=== PATIENT | female | born 1965 | race Caucasian/White ===

== ENCOUNTER 2021-12-04 08:41 | Outpatient (REF) | payer OTHER, SELFPAY ==
[2021-12-04 11:56] LABS: Hematocrit 41.9 % (37.0-47.0); Hemoglobin 13.6 g/dl (12.0-16.0); Mean Corpuscular HGB Conc 32.5 g/dl (31.0-35.0); Mean Corpuscular Hemoglobin 28.9 pg (27.0-33.0); Mean Corpuscular Volume 89.1 fL (80.0-98.0); Mean Platelet Volume 9.1 fL (9.4-12.3); Platelet Count 431 X10*3/uL (160-400); White Blood Count 7.3 X10*3/uL (4.8-10.8)
[2021-12-04 12:44] LABS: Alanine Aminotransferase 12 U/L (0-31); Albumin Level 4.3 g/dL (3.5-5.0); Alkaline Phosphatase 79 U/L (39-117); Anion Gap 16 (12-20); Aspartate Amino Transferase 14 U/L (5-31); Bilirubin Total 0.3 mg/dL (0.0-1.0); Blood Urea Nitrogen 14 mg/dL (9-16); Calcium 9.6 mg/dL (8.4-10.2); Carbon Dioxide 29 mmol/L (22-29); Chloride 101 mmol/L (96-108); Cholesterol 216 mg/dL; Estimated Glomerular Filt Rate > 60; Glucose Fasting 96 mg/dL (60-99); HDL Cholesterol 50 mg/dL; LDL Cholesterol Calculated 132 mg/dl; Sodium 142 mmol/L (135-145); Total Protein 7.3 g/dL (6.5-8.0); Triglycerides 172 mg/dL
[2021-12-04 12:48] LABS: TSH reflex Free T4 1.64 uIU/mL (0.32-4.0)
== END 2021-12-04 08:42 | disposition home or self-care (01) ==
LOC: HO.WFDLDS 08:41
PROVIDERS: Visit Provider Hospitalist
DX: Z00.00 Encounter for general adult medical examination without abnormal findings (principal)
CPT/HCPCS: 36415; 80053; 80061; 84443; 85027

== ENCOUNTER 2023-10-26 11:52 | Outpatient (AMB) | payer OTHER, SELFPAY ==
--- NOTE | 2023-10-26 12:02 | MHC.PC.OV ---
Vital Signs 10/26/23 12:06 Height 5 ft 6 in Weight 285 lb 6 oz BMI 46.1 BP 144/78 H Blood Pressure Location Lt brachial Position Sitting Respiration 16 Pulse 130 H Pulse Source Pulse Oximeter Pulse Oximetry (%) 97 Oxygen Delivery Method Room Air Intake Visit Reasons: KRISH from [facility] Intake Note: patient is here for blood pressure medicine Allergies No Known Allergies Allergy (Verified 10/26/23 12:31) Medication List - Last Reconciled 10/26/23 by Lima Álvarez [facility] amlodipine 5 mg PO DAILY hydrochlorothiazide 25 mg PO DAILY lisinopril 40 mg PO DAILY Tobacco use date assessed: 10/26/23 Dental Screening Dental Screen Date: 10/26/23 Did you have a dental visit in the last 12 months?: Yes Did you have a dental problem in the last 6 months where you did not have access to dental care?: No Was dental information given to patient?: Patient has dentist HPI HPI Comments History of Present Illness Details 58-year-old female with obstructive sleep apnea with CPAP , hypertension, depression, anxiety, erosive esophagitis, diverticulosis, Hyperlipidemia, heart murmur, obesity, left breast mass, chronic back pain, tachycardia, iron-deficiency anemia s/p lap alice Health Maintenance: Colon 10/15/20 + polyp, repeat 2025 ([facility]) Mammo 12/19/22 wnl min Pap 01/04/18 wnl DEXA Tdap 2017 Specialists: Cardiology GI Sleep medicine Here today to establish care. She has hypertension which is managed on hydrochlorothiazide, amlodipine and lisinopril. She reports taking as directed however forgets at times. She has a medical history of tachycardia of what she was evaluated by Cardiology in the past. Her heart rate is elevated today. She reports that she monitors her pulse at home and it is usually in the 70s to 90s. She currently denies any chest pain or shortness of breath. Furthermore she denies any neuro complaints. She reports that her pulse is elevated today due to anxiety. Her anxiety is currently untreated. Her symptoms include disrupted sleep. She denies self medication with substances. Does admit to some overeating. Has been reports that she has some tremors of her head when she is anxious. The patient reports that this does not bother her. She was referred to counseling in the past however the co-pay was 40 dollars per visit and she could not afford this. She currently is not working. She admits passive suicidality without a plan. She has never been on medications as she wanted to treat her anxiety 1st with counseling. She is open to medication however does not want to be put on something that will cause her to gain weight. She reports that she has had some situational stressors to include [place] She also reports pain in bilateral legs. Reports some time ago she dropped something on her left foot, she was using her right leg to bear weight to compensate and this caused pain and burden of the right leg. Walking 1 time she felt a pop in the right knee. She did not seek any medical care or treatment for this. Her legs continue to bother her today. It was also thought in the past that her tachycardia was related to untreated sleep apnea. She reports tolerance compliance with her CPAP. Reports no big improvement with her tachycardia since using. Exam: Awake alert, NAD Tachycardic, regular rhythm LS CTAB No edema BLE, feet cool, decreased PP bilat, skin intact Tearful when talking about anxiety, yet appropriate and pleasant Plan: The plan today will be to check some screening labs to rule out any cause for her tachycardia and anxiety. If the labs are negative or reassuring, discuss starting her on a beta-monalisa to help her tachycardia along with her generalized anxiety disorder. Could also entertain BuSpar if needed. Refer to the nurse navigator to help her establish care with a counselor. Also recommended checking in with her spouse's employer assistance program to see if services would be available to her. I would like to see her back in 2 weeks for close interim follow up to review her labs and treatment plan. Sooner as needed. Labs from today show normal CBC, normal electrolytes, normal renal function, hemoglobin A1c 5.9%, normal magnesium and phosphorus, normal iron profile, normal LFTs, normal B12, folate and TSH, normal urine microalbumin creatinine ratio, vitamin-D and direct LDL pending This note is constructed using voice recognition software. While every effort has been made to ensure accuracy in copper plate lithographer, still errors may have been included Sometimes, these errors may affect the content or meaning of the given sentence . Total time spent caring for the patient today was 42 minutes. This includes time spent before the visit reviewing the chart, time spent during the visit, and time spent after the visit on documentation [facility] Medical History (Updated 10/26/23 @ 16:19 by Lima Álvarez, [facility]) Left breast mass Anxiety associated with depression Sleep apnea Tachycardia Hypertension Family History Father Heart disease Mother Hypertension Other Mental health disorder Substance use disorder Social History Housing: House Patient Tobacco Use Status: Never used Tobacco service: No Current occupational status: unemployed Cognitive needs: No Hearing needs: No Vision needs: Yes (wear glasses) Questionnaire PHQ-9 Over the last 2 weeks, how often have you been bothered by any of the following problems? 1. Little interest or pleasure in doing things: more than half the days 2. Feeling down, depressed, or hopeless: more than half the days 3. Trouble falling or staying asleep, or sleeping too much: more than half the days 4. Feeling tired or having little energy: more than half the days 5. Poor appetite or overeating: more than half the days 6. Feeling bad about yourself - or that you are a failure or have let yourself or your family down: more than half the days 7. Trouble concentrating on things, such as reading the newspaper or watching television: not at all 8. Moving or speaking so slowly that other people could have noticed. Or the opposite - being so fidgety or restless that you have been moving around a lot more than usual: not at all 9. Thoughts that you would be better off or of hurting yourself in some way: several days Total score: 13 Depression Screening Interpretation: Positive Depression Screening Follow-up: Existing condition Depression Screening Done: Yes 78324 - PHQ-9 Billing: Yes Source: Developed by Drs. Jesus Reyes, Arline Cho, George Levine and colleagues, with an educational gretchen from [employer]. Thrive Questionnaire Date Thrive assessed: 10/26/23 I am a: Patient What is your living situation today?: I have a steady place to live Within the past 12 months, did the food you bought not last and you didn't have the money to get more?: Never true Within the past 12 months, did you worry whether your food would run out before you got money to buy more?: Never true Do you have trouble paying for medicines?: No Do you have trouble getting transportation to medical appointments?: No Do you have trouble paying your heating and electricity bill?: No Do you have trouble taking care of your child, family member or friend?: No Do you have trouble with day-to-day activities such as bathing, preparing meals, shopping, managing finances, etc.?: No Are you currently unemployed and looking for a job?: No Are you interested in more education?: No Please select the resources that you would like help with: None THRIVE Score: 0 AUDIT C Alcohol Use Questionnaire (AUDIT-C) 1. How often do you have a drink containing alcohol?: Never 2. How many drinks containing alcohol do you have on a typical day when you are drinking?: 1 or 2 3. How often do you have six or more drinks on one occasion?: Never Total Score: 0 Score Reviewed/Action Taken: Yes ANUSHKA-7 AMB Questionnaire ANUSHKA-7 Date ANUSHKA - 7 assessed: 10/26/23 Feeling nervous, anxious, or on edge: 3 = Nearly every day Not being able to stop or control worryin = Nearly every day Worrying too much about different things: 3 = Nearly every day Trouble relaxin = Nearly every day Being so restless that it is hard to sit still: 3 = Nearly every day Becoming easily annoyed or irritable: 3 = Nearly every day Feeling afraid as if something awful might happen: 3 = Nearly every day Total ANUSHKA-7 score (0-4 normal; 5-9 mild; 10-14 moderate; 15-21 severe): 21 Source: Developed by Drs. Jesus Reyes, Arline Cho, George Levine and colleagues, with an educational gretchen from [employer]. ANUSHKA-7 Assessment Billing ANUSHKA-7 Assessment Tool: ANUSHKA-7 Assessment 40451 Physical exam (Primary Care) Vital Signs: Last Vital Signs Pulse 130 H 10/26/23 12:06 Resp 16 10/26/23 12:06 BP 144/78 H 10/26/23 12:06 Pulse Ox 97 10/26/23 12:06 Oxygen Delivery Method Room Air 10/26/23 12:06 BMI result Body Mass Index 46.1 BMI Assessment/Plan discussion: High BMI High, discussed plan: lifestyle Tobacco/Smoking Status: Tobacco use Status Tobacco use date assessed 10/26/23 10/26/23 12:08 Patient Tobacco Use Status Never used Tobacco 10/26/23 12:04 PHQ-9: PHQ-9 Score PHQ-9: Total score 13 10/26/23 16:19 Depression Screening Interpretation: Positive Depression Screening Follow-up: Existing condition Thrive Assessment: Date of Thrive Assessment Date Thrive assessed 10/26/23 10/26/23 16:19 Assessment and Plan Assessment & Plan (1) NAUSHKA (generalized anxiety disorder): Code(s): F41.1 - Generalized anxiety disorder (2) Hypertension: Code(s): I10 - Essential (primary) hypertension Qualifiers: Hypertension type: primary hypertension Qualified Code(s): I10 - Essential (primary) hypertension (3) Tachycardia: Code(s): R00.0 - Tachycardia, unspecified (4) PARISA on CPAP: Code(s): G47.33 - Obstructive sleep apnea (adult) (pediatric) (5) MDD (major depressive disorder), recurrent episode: Code(s): F33.9 - Major depressive disorder, recurrent, unspecified Qualifiers: Major depression episode severity: moderate Qualified Code(s): F33.1 - Major depressive disorder, recurrent, moderate (6) Hyperlipidemia: Code(s): E78.5 - Hyperlipidemia, unspecified Qualifiers: Hyperlipidemia type: mixed hyperlipidemia Qualified Code(s): E78.2 - Mixed hyperlipidemia (7) Iron deficiency anemia: Code(s): D50.9 - Iron deficiency anemia, unspecified Qualifiers: Iron deficiency anemia type: unspecified iron deficiency Qualified Code(s): D50.9 - Iron deficiency anemia, unspecified (8) Morbid obesity with BMI of 45.0-49.9, adult: Code(s): E66.01 - Morbid (severe) obesity due to excess calories; Z68.42 - Body mass index [BMI] 45.0-49.9, adult Orders: Orders Comprehensive Met. Panel 10/26/23 F41.1 - Generalized anxiety disorder, I10 - Essential (primary) hypertension, R00.0 - Tachycardia, unspecified Hemoglobin A1c 10/26/23 F41.1 - Generalized anxiety disorder, I10 - Essential (primary) hypertension, R00.0 - Tachycardia, unspecified IRON PROFILE 10/26/23 F41.1 - Generalized anxiety disorder, I10 - Essential (primary) hypertension, R00.0 - Tachycardia, unspecified Microalbumin, Random (w Creat) 10/26/23 F41.1 - Generalized anxiety disorder, I10 - Essential (primary) hypertension, R00.0 - Tachycardia, unspecified Vitamin D 1,25 dihydroxy 10/26/23 F41.1 - Generalized anxiety disorder, I10 - Essential (primary) hypertension, R00.0 - Tachycardia, unspecified Magnesium 10/26/23 F41.1 - Generalized anxiety disorder, I10 - Essential (primary) hypertension, R00.0 - Tachycardia, unspecified Complete Blood Count no Diff 10/26/23 F41.1 - Generalized anxiety disorder, I10 - Essential (primary) hypertension, R00.0 - Tachycardia, unspecified TSH reflex Free T4 10/26/23 F41.1 - Generalized anxiety disorder, I10 - Essential (primary) hypertension, R00.0 - Tachycardia, unspecified Vitamin B12 and Folate 10/26/23 F41.1 - Generalized anxiety disorder, I10 - Essential (primary) hypertension, R00.0 - Tachycardia, unspecified LDL Cholesterol Direct 10/26/23 F41.1 - Generalized anxiety disorder, I10 - Essential (primary) hypertension, R00.0 - Tachycardia, unspecified Phosphorus 10/26/23 F41.1 - Generalized anxiety disorder, I10 - Essential (primary) hypertension, R00.0 - Tachycardia, unspecified Referrals Nurse Navigator Referral F41.1 - Generalized anxiety disorder Medications: Refilled hydrochlorothiazide 25 mg PO DAILY 90 tabs 0RF lisinopril 40 mg PO DAILY 90 tabs 0RF amlodipine 5 mg PO DAILY 90 tabs 0RF Patient Instructions: Walk-In Care (Urgent Care): We Make it Easy Walk-in for urgent medical issues such as: ? Seasonal Allergies ? Insect Bites ? Cough ? Diarrhea ? Acute Asthma Attacks ? Back, Knee or Joint Pain ? Ear Infection ? Fever without a Rash ? Headaches ? Nausea ? Tindall Eye, Rash or Skin Irritation ? Sore Throat ? Sports Physicals ? Vomiting Most insurances are accepted. Patients do not need to be part of the [facility] to seek care at the walk-in clinic. Locations [facility] [address], [place] [address] ? [phone] [facility] Walk-In Care in [place] provides services to ages 18 and over. Open Thursday-Thursday: 8 a.m. to 5 p.m. and Thursday: 9 a.m. to 3 p.m.* *Hours may vary due to staffing availability. To confirm Walk-In Care hours in [place], please call [phone]. [address] [place] [address] ? [phone] [facility] Walk-In Care in [place] provides services to ages 12 and over. Open Thursday-Thursday: 8 a.m. to 5 p.m. Hours may vary due to staffing availability. To confirm Walk-In Care hours in [place], please call [phone]. LABORATORY SERVICES: [facility] ? Primary Location [address] [place] [address] Thursday through Thursday 6:00 AM ? 5:00 PM Thursday 7:00 AM ? 11:00 AM* [phone] The [facility] is centrally located near the front entrance of the [facility] for easy outpatient access. Convenient parking is provided for outpatients. *Hours may vary due to staffing availability. To confirm Laboratory hours for any location, please call [phone]. Offsite Location For your convenience, we offer offsite laboratory draw stations at the following locations: [address] [place] [address] ? [address], [address] Thursday through Thursday 7:30 AM ? 1:00 PM* [phone] *Hours may vary due to staffing availability. To confirm Laboratory hours for any location, please call [phone]. [place] ? [address] Thursday through Thursday 6:00 AM ? 3:30 PM* Thursday 6:30 AM ? 3 PM* [phone] *Hours may vary due to staffing availability. To confirm Laboratory hours for any location, please call [phone] [place] [address] Thursday through Thursday 7:30 AM ? 4:00 PM* [phone] *Hours may vary due to staffing availability. To confirm Laboratory hours for any location, please call [phone]. [facility] Thursday through 9:00 AM ? 4:00 PM* *Hours may vary due to staffing availability. To confirm Laboratory hours for any location, please call [phone]. Appointments are not necessary. Walk-ins are welcome. Like all the departments throughout the [facility], our Lab undergoes frequent reviews to ensure the quality and accuracy of test results, and our staff takes special pride in its status as a nationally accredited facility. Patient Portal: ONE PATIENT. ONE RECORD. BETTER CARE. [facility] has a fully integrated, cutting-edge mobile electronic health information system that has revolutionized the way we care for our patients and manage our organization. This system improves communication and coordination enabling us to provide safe, higher-quality care, and an overall positive experience for staff and patients. Our first priority, as always, is to deliver the highest quality care possible. The system is running in the background supporting that priority. This portal is for all [facility] services and practices. If you are experiencing any technical difficulties with enrolling or logging into the Patient Portal please complete the [facility] Patient Portal Technical Support Form. [facility] now offers a new secure on-line interactive tool for patients to review their health information ? ?Patient Portal. This interactive web portal will enable patients and their families to take an active role in their care by providing easy, secure access to their health information via the internet. The Patient Portal provides patients with instant access to their health information, including laboratory results, medications, allergies, demographic information, visit history, and more. In addition to managing their own care, parents and health care proxies with authorized consent will appreciate the ability to access the records of those individuals for whom they provide care. Please note: if you wish to gain access (Proxy) to another patient?s portal, you will be required to come to the Medical Records Department in person at [facility]. Both the patient giving proxy access and the proxy will need to provide photo identification and complete the appropriate authorization. The Patient Portal also allows track their appointments online. The [facility] Patient Portal also saves patients time by allowing them to submit updates to their demographic and contact information prior to their visits. Portal email notifications will also alert patients to any new activity on their portal, such as test results and new appointments. In order to initially enroll in the [facility] Patient Portal, you will need to enter some required information including the following: your [facility] Medical Record number your personal home email address name date of Please note: In order to enroll in the [facility] Patient Portal, we need to have your email address on file in your electronic medical record. ?The email address needs to be specific for one person (yourself) in order for your Portal enrollment to be successful. ?You can update your email address in person with our Registration staff when you are registering for a hospital visit. ?Otherwise, you will need to come to the Health Information Management (Medical Records) Department at [facility]. ?We are open from Thursday ? Thursday from 7:30 a.m. ? 4:30 p.m. ?You will be required to present a photo id. Once you have successfully enrolled in the Patient Portal, you will receive a one-time user id and password for the Portal, sent to your email address. ?This will allow you to log into the Patient Portal within 99 hrs and reset your own logon id and password, and define personal security questions. ?Once your permanent login and password have been set, you can log into the [facility] Patient Portal at any time via the blue button above or from the Portal Logon button on any page of the [facility] website. [facility] encourage all of our patients to enroll in Patient Portal as it presents a valuable opportunity for patients and their families to actively participate in their care and stay healthy Welcome to [facility]. ?We look forward to working with you. Crisis Hotlines Suicide prevention, domestic violence, and other crisis hotlines for youth, young adults, and their friends and families. National Runaway Safeline: The National Runaway Safeline helps youth who have run away, are thinking about running away, or who already ran away but are ready to come home. Parents and guardians can also contact the hotline if they are worried about their child running away or if their child has already left home. The hotline is available 24 hours a day, seven days a week. Youth, parents, and guardians can also use the online chat feature on the [facility]'s website to ask for help and get support, [place] [address]. [facility] National Suicide Prevention Lifeline: The National Suicide Prevention Lifeline is a network of local crisis centers that are available 24/ to provide support for youth and adults who are in any kind of emotional crisis. In addition to the main hotline number listed above, there are several other numbers to call depending on your needs: Sinhala Language: Deaf and Hard of Hearin1-650.726.7100 Veterans: Disaster Distress: Anyone can also use their online chat feature on their website. [place] Suicide Prevention Lifeline [facility] Helpline: The [facility] Helpline is available to anyone in [place] who is need of emotional support. Anyone can call or text the helpline to receive help from specially trained volunteers. [place] high school and college students can also get online support through the IMHear_ program. For high school students, volunteers ages 15-18 are available Thursday- from 6-9PM. For college students, IMHear_ is available Thursday-Thursday from 5-9PM. The Oneil Project - The Oneil Project is a 08/09 crisis intervention and suicide prevention hotline for LGBTQ youth. Youth can also text Oneil to for support, or use the online chat feature on the Oneil Project's website. TrevorText is available Thursday-Thursday between 3-10PM. TrevorChat is available seven days a week between 3-10PM. SafeLink: SafeLink is for anyone who is being affected by domestic violence or dating violence. Volunteers at SafeLink speak Vietnamese and Sinhala, and [employer] also has a service that can provide translation in more than 130 languages. TTY: Coding Level of Care Code Est Pt Level 5 (32462) Diagnoses ANUSHKA (generalized anxiety disorder) F41.1 Primary hypertension I10 Hypertension type: primary hypertension Tachycardia R00.0 PARISA on CPAP G47.33 Moderate episode of recurrent major depressive disorder F33.1 Major depression episode severity: moderate Mixed hyperlipidemia E78.2 Hyperlipidemia type: mixed hyperlipidemia Iron deficiency anemia, unspecified iron deficiency anemia type D50.9 Iron deficiency anemia type: unspecified iron deficiency Morbid obesity with BMI of 45.0-49.9, adult E66.01; Z68.42 Additional Codes ANUSHKA-7 Assessment Billing - ANUSHKA-7 Assessment Tool: ANUSHKA-7 Assessment 49874 ([id number])
[2023-10-26 12:06] VITALS: BP 144/78; PULSE 130; RESP 16; O2SAT 97; BMI 46.1
== END 2023-10-26 13:02 | disposition home or self-care (01) ==
PROVIDERS: PCP Nurse Practitioner Family; Visit Provider Nurse Practitioner Family
DX: I10 Essential (primary) hypertension (principal); F33.1 Major depressive disorder, recurrent, moderate; E66.01 Morbid (severe) obesity due to excess calories; Z68.42 Body mass index [BMI] 45.0-49.9, adult; F41.1 Generalized anxiety disorder; R00.0 Tachycardia, unspecified; G47.33 Obstructive sleep apnea (adult) (pediatric); E78.2 Mixed hyperlipidemia; D50.9 Iron deficiency anemia, unspecified
CPT/HCPCS: 99215

== ENCOUNTER 2023-10-26 13:41 | Outpatient (REF) | payer OTHER, SELFPAY ==
[2023-10-26 18:17] LABS: Creatinine Urine 26.16 mg/dL; Microalbum/Creatinine Ratio Ur 34.4 ug/mg cr (<30)
[2023-10-26 22:47] LABS: Hematocrit 44.6 % (37.0-47.0); Hemoglobin 14.6 g/dl (12.0-16.0); Mean Corpuscular HGB Conc 32.7 g/dl (31.0-35.0); Mean Corpuscular Hemoglobin 28.5 pg (27.0-33.0); Mean Corpuscular Volume 87.1 fL (80.0-98.0); Mean Platelet Volume 9.1 fL (9.4-12.3); Platelet Count 440 X10*3/uL (160-400); Red Blood Count 5.12 X10*6/uL (4.20-5.50); Red Cell Distribution Width 13.7 % (11.0-16.0); White Blood Count 9.7 X10*3/uL (4.8-10.8)
[2023-10-26 23:07] LABS: Alanine Aminotransferase 20 U/L (0-31); Albumin Level 4.5 g/dL (3.5-5.0); Alkaline Phosphatase 74 U/L (39-117); Anion Gap 17 (12-20); Aspartate Amino Transferase 21 U/L (5-31); Bilirubin Total 0.3 mg/dL (0.0-1.0); Blood Urea Nitrogen 15 mg/dL (9-16); Calcium 10.1 mg/dL (8.4-10.2); Carbon Dioxide 25 mmol/L (22-29); Chloride 101 mmol/L (96-108); Estimated Glomerular Filt Rate > 60; Glucose Random 81 mg/dL (60-115); Iron 46 mcg/dL (30-160); Magnesium 2.2 mg/dL (1.6-2.6); Percent Iron Saturation 14 % (15-50); Phosphorus 3.2 mg/dL (2.7-4.5); Potassium 3.4 mmol/L (3.3-5.1); Sodium 140 mmol/L (135-145); Total Iron Binding Capacity 318 mcg/dL (228-428); Total Protein 8.1 g/dL (6.5-8.0); Unsaturated Iron Binding 272 ug/dL
[2023-10-26 23:23] LABS: TSH reflex Free T4 1.28 uIU/mL (0.32-4.0)
[2023-10-26 23:36] LABS: Folate 7.4 ng/mL (> or = 4.0); Vitamin B12 431 pg/mL (200-900)
[2023-10-27 05:30] LABS: Estimated Average Glucose 123 mg/dL; Hemoglobin A1c % 5.9 % (<6.0)
[2023-10-28 17:09] LABS: LDL Cholesterol Direct 151 mg/dL (<100)
[2023-10-31 05:24] LABS: VITAMIN D (1,25 OH) D3 50 pg/mL; Vit D (1,25-Dihydroxy) Total 50 pg/mL (18-72); Vitamin D (1,25 OH) D2 <8 pg/mL
== END 2023-10-26 13:42 | disposition home or self-care (01) ==
LOC: HO.WFDLDS 13:41
PROVIDERS: Visit Provider Nurse Practitioner Family
DX: F41.1 Generalized anxiety disorder (principal); R00.0 Tachycardia, unspecified; I10 Essential (primary) hypertension; Z13.1 Encounter for screening for diabetes mellitus
CPT/HCPCS: 36415; 80053; 82043; 82570; 82607; 82652; 82746; 83036; 83540; 83721; 83735; 84100; 84443; 85027

== ENCOUNTER 2024-01-25 13:01 | Outpatient (AMB) | payer OTHER, SELFPAY ==
--- NOTE | 2024-01-25 13:03 | MHC.PC.OV ---
Vital Signs 01/25/24 13:06 01/25/24 14:10 Height 5 ft 6 in Weight 286 lb 6 oz BMI 46.2 BP 170/98 H 144/76 H Blood Pressure Location Rt brachial Rt brachial Position Sitting Sitting Respiration 15 Pulse 132 H 92 Pulse Source Pulse Oximeter Auscultation Pulse Oximetry (%) 96 Oxygen Delivery Method Room Air Intake Visit Reasons: joe from 11/15 30 min fu labs/tach/anushka Intake Note: follow up on labs Tank Cleaner Required: No Allergies No Known Allergies Allergy (Verified 01/25/24 14:03) Medication List - Last Reconciled 01/25/24 by Lima Álvarez, [facility]- amlodipine 5 mg PO DAILY hydrochlorothiazide 25 mg PO DAILY lisinopril 40 mg PO DAILY Tobacco use date assessed: 10/26/23 Dental Screening Dental Screen Date: 10/26/23 HPI HPI Comments History of Present Illness Details 58-year-old female with obstructive sleep apnea with CPAP , hypertension, depression, anxiety, erosive esophagitis, diverticulosis, Hyperlipidemia, heart murmur, obesity, left breast mass, chronic back pain, tachycardia, iron-deficiency anemia s/p lap alice Health Maintenance: Colon 10/15/20 + polyp, repeat 2025 ([facility]) Mammo 12/19/22 wnl 12/2023 WNL Pap 01/04/18 wnl DEXA Tdap 2017 Specialists: Cardiology GI Sleep medicine Here today for follow up of anxiety and tachycardia. Since last office visit her symptoms remain the same. At the last office visit we did labs to evaluate potential causes for her tachycardia. Labs below reviewed with her today. Her hypertension is well controlled on the current agents. She is taking daily as directed. She was referred to counseling and has a 1st intake appointment in February. She was unable to determine her bdp-bl-kihcqs cost which was his barrier to her receiving care in the past. She denies any chest pain. At the last office visit we discuss starting her on a beta-monalisa versus starting her on an anxiolytic. Reviewed again with her today and she would like to start on a beta-monalisa. Exam: Awake alert, NAD Mildly Tachycardic, regular rhythm LS CTAB No edema BLE, feet cool, decreased PP bilat, skin intact Tearful when talking about anxiety, yet appropriate and pleasant Labs from last visit normal CBC, normal electrolytes, normal renal function, hemoglobin A1c 5.9%, normal magnesium and phosphorus, normal iron profile, normal LFTs, normal B12, folate and TSH, normal urine microalbumin creatinine ratio, vitamin-D normal and direct LDL 154 Plan - Elevated Heart Rate and Anxiety: The patient is advised to start propranolol 60 mg at bedtime, which may help manage both the heart rate and anxiety. Monitoring for side effects such as headache or dizziness was recommended. - Hypercholesterolemia: No specific change in management was discussed. Continued monitoring of cholesterol levels is implied. - Hypertension: Continue current medications,. Regular monitoring of blood pressure. Patient was informed and verbally consented to the use of an ambient scribe for clinic note documentation during this visit. Discussion Notes I discussed with the patient her elevated heart rate and associated anxiety. We reviewed the option of starting propranolol, a medication with dual benefits that could potentially manage her physical symptoms and anxiety. I emphasized the importance of monitoring for side effects, including headache and dizziness, and advised the patient to report any adverse effects to me. We also addressed her difficulties in obtaining counseling due to insurance coverage concerns, and I encouraged further contact with her insurance provider to verify coverage options. We agreed to follow up in approximately four to six weeks to assess her response to propranolol and to reevaluate her anxiety management. Patient Instructions - Start propranolol 60 mg at bedtime. - Monitor for side effects such as headache and dizziness, and report these to me if they occur. - Follow up with insurance provider for coverage details concerning counseling and outpatient services. - Maintain current antihypertensive medication regime. - Schedule a follow-up appointment in four to six weeks to assess the effectiveness of treatment and make any necessary adjustments. - Be attentive to any significant changes in symptoms and seek care if needed. This note is constructed using voice recognition software. While every effort has been made to ensure accuracy in retail worker, still errors may have been included Sometimes, these errors may affect the content or meaning of the given sentence . Total time spent caring for the patient today was 30 minutes. This includes time spent before the visit reviewing the chart, time spent during the visit, and time spent after the visit on documentation COUNT INCLUDES THE [facility] Medical History (Updated 10/26/23 @ 16:19 by ENEDINA Escudero-) Left breast mass Anxiety associated with depression Sleep apnea Tachycardia Hypertension Family History Father Heart disease Mother Hypertension Other Mental health disorder Substance use disorder Social History Housing: House Patient Tobacco Use Status: Never used Tobacco service: No Current occupational status: unemployed Cognitive needs: No Hearing needs: No Vision needs: Yes (wear glasses) Questionnaire PHQ-9 Over the last 2 weeks, how often have you been bothered by any of the following problems? 08216 - PHQ-9 Billing: Patient declined-do not bill Source: Developed by Drs. Jesus Reyes, Arline Cho, George Levine and colleagues, with an educational gretchen from [employer]. Thrive Questionnaire Date Thrive assessed: 01/25/24 I am a: Patient What is your living situation today?: I have a steady place to live Within the past 12 months, did the food you bought not last and you didn't have the money to get more?: I choose not to answer this question Within the past 12 months, did you worry whether your food would run out before you got money to buy more?: I choose not to answer this question Do you have trouble paying for medicines?: I choose not to answer this question Do you have trouble getting transportation to medical appointments?: I choose not to answer this question Do you have trouble paying your heating and electricity bill?: I choose not to answer this question Do you have trouble taking care of your child, family member or friend?: I choose not to answer this question Do you have trouble with day-to-day activities such as bathing, preparing meals, shopping, managing finances, etc.?: I choose not to answer this question Are you currently unemployed and looking for a job?: I choose not to answer this question Are you interested in more education?: No Please select the resources that you would like help with: None Currently or been in a relationship where the following occur: I choose not to answer THRIVE Score: 0 AUDIT C Alcohol Use Questionnaire (AUDIT-C) 1. How often do you have a drink containing alcohol?: Never Total Score: 0 ANUSHKA-7 AMB Questionnaire ANUSHKA-7 Date ANUSHKA - 7 assessed: 01/25/24 Feeling nervous, anxious, or on edge: 3 = Nearly every day Not being able to stop or control worryin = Nearly every day Worrying too much about different things: 3 = Nearly every day Trouble relaxin = Nearly every day Being so restless that it is hard to sit still: 2 = More than half the days Becoming easily annoyed or irritable: 1 = Several days Feeling afraid as if something awful might happen: 2 = More than half the days Total ANUSHKA-7 score (0-4 normal; 5-9 mild; 10-14 moderate; 15-21 severe): 17 Source: Developed by Drs. Jesus Reyes, Arline Cho, George Levine and colleagues, with an educational gretchen from [employer]. ANUSHKA-7 Assessment Billing ANUSHKA-7 Assessment Tool: ANUSHKA-7 Assessment 84867 Physical exam (Primary Care) Vital Signs: Last Vital Signs Pulse 132 H 01/25/24 13:06 Resp 15 01/25/24 13:06 BP 170/98 H 01/25/24 13:06 Pulse Ox 96 01/25/24 13:06 Oxygen Delivery Method Room Air 01/25/24 13:06 BMI result Body Mass Index 46.2 Tobacco/Smoking Status: Tobacco use Status Tobacco use date assessed 10/26/23 01/25/24 13:06 Patient Tobacco Use Status Never used Tobacco 01/25/24 13:06 Thrive Assessment: Date of Thrive Assessment Date Thrive assessed 01/25/24 01/25/24 13:06 Currently or been in a relationship where the following occur: I choose not to answer Coding Level of Care Code Est Pt Level 4 (96330) Complex EM visit Add On G2211 Diagnoses Tachycardia R00.0 ANUSHKA (generalized anxiety disorder) F41.1 Mixed hyperlipidemia E78.2 Hyperlipidemia type: mixed hyperlipidemia Primary hypertension I10 Hypertension type: primary hypertension Moderate episode of recurrent major depressive disorder F33.1 Major depression episode severity: moderate Additional Codes ANUSHKA-7 Assessment Billing - ANUSHKA-7 Assessment Tool: ANUSHKA-7 Assessment 02893 ([id number]) Assessment & Plan Assessment & Plan (1) Tachycardia: Code(s): R00.0 - Tachycardia, unspecified Category: Medical (2) ANUSHKA (generalized anxiety disorder): Code(s): F41.1 - Generalized anxiety disorder Category: Medical (3) Hyperlipidemia: Code(s): E78.5 - Hyperlipidemia, unspecified Category: Medical Qualifiers: Hyperlipidemia type: mixed hyperlipidemia Qualified Code(s): E78.2 - Mixed hyperlipidemia Plan: To reduce low-density lipoprotein (LDL) cholesterol, you can try making lifestyle changes to your diet, exercise, and other habits: Eat a heart-healthy diet Limit saturated and trans fats, and eat more foods with healthy fats, like nuts, seeds, and unsaturated oils. You can also try eating more soluble fiber, which can help reduce the amount of cholesterol your body absorbs. Foods high in soluble fiber include whole grains, fruits, and legumes. Exercise regularly Aim for at least 150 minutes of exercise per week, such as walking, swimming, or cycling. Maintain a healthy weight Losing weight can help lower LDL cholesterol, especially if you are overweight or obese. Manage stress Chronic stress can raise LDL cholesterol, so try to find healthy ways to manage it. Quit smoking Smoking can raise cholesterol and increase the risk of serious health problems. Get enough sleep Aim for 7 to 9 hours of sleep per night. You should also limit foods with cholesterol, which are found in animal products like liver, egg yolks, and whole milk dairy products. (4) Hypertension: Code(s): I10 - Essential (primary) hypertension Category: Medical Qualifiers: Hypertension type: primary hypertension Qualified Code(s): I10 - Essential (primary) hypertension (5) MDD (major depressive disorder), recurrent episode: Code(s): F33.9 - Major depressive disorder, recurrent, unspecified Category: Medical Qualifiers: Major depression episode severity: moderate Qualified Code(s): F33.1 - Major depressive disorder, recurrent, moderate Plan . Medications: New propranolol ER 60 mg PO BEDTIME 90 caps 0RF
[2024-01-25 13:06] VITALS: BP 170/98; PULSE 132; RESP 15; O2SAT 96; BMI 46.2
[2024-01-25 14:10] VITALS: BP 144/76; PULSE 92
--- OUTSIDE RECORDS SUMMARY | 2024-01-27 15:32 | XMS_ITS | Continuity of Care Document ---
Author Organization [facility] Address [address] [place] [address] Phone Care Team Providers Care Flotation Operator Name Role Phone Alejandro Oneal Unavailable Unavailable Allergies, Adverse Reactions, Alerts Substance Reaction Status Criticality No Known Allergies Active No Inform ation Medications Medication Instructions Dosage Effective Dates (start - stop) Status Comments lisinopril 40 mg tablet take 1 tablet by oral route every day 40 MG - Active hydrochlorothiazide 25 mg tablet take 1 tablet by oral route every day 25 MG - Active Problems Condition Type Effective Dates (start - stop) [facility] Status Comments No Known Problems Procedures Procedure Date OFFICE/OUTPATIENT VISIT, EST OFFICE/OUTPATIENT VISIT, [facility] Advance Directives Directive Yes / No Effective Date File Name No Information Encounters Encounter Description Practice Location Reason(s) For Visit Diagnoses Date Provider Providers Copied on Encounter [facility], [address], [place], [place], [id number], [place] tel:[phone] [facility] No Information [address]. [address] [place], [address], [place]. tel:[phone] OFFICE/OUTPA TIENT VISIT, EST [facility], [address], [place], [place], [id number], [place] tel:[phone] [facility] Med refill (chief complaint) Essential (primary) hypertensionMedica tion refill [address] Ber[address] Allen. [address] [place], [address], [place]. tel: [phone] OFFICE/OUTPA TIENT VISIT, [facility], [facility], [place], [place], [id number], [place] tel:[phone] [facility] 2 Diabetic medication refill (chief complaint) Essential (primary) hypertension 7 Stanislaw Soto. [address] [place], [address], [place]. tel:[phone] Family History Family Member Type Diagnosis Age At Onset Mother Problem (finding) Alive and well Payers Payer name Insurance type Covered libertarian ID Emeli blas(s) [facility] CI [id number] Social History Type Description Quantity Date Captured Comments Sex Female Smoking Status No Information Sexual Orientation Straight or heterosexual Gender Identity Female Chief Complaint And Reason For Visit No Information Reason For Referral Reason For Referral No Information History Of Present Illness Encounter Date Complaint History Of Prese nt Illness Med refill 52 year old femkacie le here for walk in visit for medication refill for lisinopril and HCTZ. Patient denies chest pain, SOB, David or edema. Diabetic medication refill The s ymptoms are reported as being none. The symptoms occur none. 51 y/o female here as a walk-in requesting med refills. Dr. Sauer is current PMD, but she is switching to [facility] as her PMD. Requesting Lisinopril 40mg, HCTZ 25mg, which she has been taking for sometime.However, the last few days patient has been alternating and only take one medication daily due to fear of running out. She denies headache or dizziness. Functional Status Date Functional Assessmen t No Information Instructions Date Instruction Additional Infor joseph Meds refilled. Trae covarrubias up with PCP within 2 months for BP check and physical. Related to Essential (primary) hypertension Return in 1-3 weeks for recheck of BP. Related to Essential (primary) hypertension Follow a low sodium diet. Make appointment for general physical. Related to Essential (primary) hypertension Refilled Lisinopril and HCTZ. Re lated to Essential (primary) hypertension Assessments Type Assessment Date No Information Patient Care Teams Name Effective Dates (start - stop) Status Members No Information
--- OUTSIDE RECORDS SUMMARY | 2024-01-27 15:32 | XMS_ITS | Continuity of Care Document ---
Author Organization [facility] Address [address] [place] [address] Phone Care Team Providers Care Perlite Grinder Name Role Phone Lynn Saul M.D. Unavailable Unavailable Allergies, Adverse Reactions, Alerts Substance Reaction Status Criticality No Known Allergies Active No Inform ation Medications Medication Instructions Dosage Effective Dates (start - stop) Status Comments LISINOPRIL 40 MG TABLET TAKE 1 TABLET BY MOUTH ONE TIME DAILY 40 MG - Active HYDROCHLOROTHIAZIDE 25 MG TAB TAKE ONE TABLET BY MOUTH ONE TIME DAILY - Active promethazine 6.25 mg-codeine 10 mg/5 mL syrup take 5 milliliter by oral route every 6 hours as needed, not to exceed 30 mL in 24 hours 5.00 milliliter - Active Procedures Procedure Date Office/outpatient visit,est, mod 2014 BODY MASS INDEX DOCD Systolic Blood Pressure 131-139mm Hg Nov Systolic Blood Pressure Greater Or Equal To 140mm Diastolic Blood Pressure Greater Or Equa l To 90mm Office/outpatient visit,est, mod 2014 Systolic Blood Pressure Greater Or Equal To 140mm Diastolic Blood Pressure Greater Or Equa l To 90mm Clonidine hydrochloride Clonidine hydrochloride OFFICE/OUTPATIENT VISIT NEW Advance Directives Directive Yes / No Effective Date File Name No Information Encounters Encounter Description Practice Location Reason(s) For Visit Diagnoses Date Provider Providers Copied on Encounter [facility], [address] [place] [address], [id number], tel:[phone] [facility] No Information Josesito-0 3-201 7 [place] Lynn. [address] [place] [address], [address], [place]. tel:[phone] [facility], [address], [place], [id number], [place] tel:[phone] [facility] No Information Jan-0 6-201 6 [place] [facility] Lynn. [address] [place] [address], [address], [place]. tel:[phone] [facility], [address] [place] [address], [id number], [place] tel:[phone] [facility] No Information Nov-2 1-201 6 [place] [facility] Lynn. [address] [place] [address], [address], [place]. tel:[phone] Office/outpa tient visit,est, [facility], [address] [place] [address], [id number], [place] tel:[phone] [facility] Cough (chief complaint) BronchitisBe nign hypertension Body mass index (BMI) 40.0-44.9, [facility] er for exam of blood pressure w/o abnormal findings Nov-3 0-201 5 [place] [facility] Lynn. [address] [place] [address], [address], [place]. tel:[phone] Office/outpa tient visit,est, [facility], [address] [place] [address], [id number], [place] tel:[phone] [facility] Follow Up of Hypertension (chief complaint) Skin lesionHTN (hypertensio n)Obesity 5 Atul Brittany. [address] [place], [place], [id number], [place]. tel:[phone] OFFICE/OUTPA TIENT VISIT [facility], [address], [place], [place], [id number], [place] tel:[phone] [facility] Lump under armpit (chief complaint)hyp ertension (chief complaint) OTH SPECIFIED EXAMHyperten sionSkin tag 5 Atul Soto. [address], [place], [id number], [place]. tel:[phone] Family History Family Member Type Diagnosis Age At Onset Problem (finding) Family history of hyper tension Payers Payer name Insurance type Covered green party ID Authoriza tion(s) No Information Social History Type Description Quantity Date Captured Comments Sex Female Smoking Status No Information Chief Complaint And Reason For Visit No Information Reason For Referral Reason For Referral No Information Plan Of Treatment Date Type Action Status Goal FLUZONE MDV 3yrs>. Due on Oc due Goal Lipid panel. Due on 015 due Goal FLUMIST. Due on due Goal FLUZONE HIGH DOSE. Due on Oc due Goal FLUVIRIN PRES FR EE 3yrs>. Due on due Goal Td vaccine. Due on 15 due Goal FLUVIRIN MDV 3yrs>. Due on O due Goal Tdap. Due on due Goal Depression screening. Due on due Goal Pap/HPV testing. Due on due Goal FLUVIRIN MDV 3yrs>. Due on M due Goal FLUZONE MDV 3yrs>. Due on Ma due Goal Depression screening. Due on due Goal Td vaccine. Due on 15 due Goal FLUVIRIN PRES FR EE 3yrs>. Due on due Goal Lipid panel. Due on 015 due Goal FLUZONE HIGH DOSE. Due on due Goal FLUMIST. Due on due Goal Tdap. Due on due Goal Pap/HPV testing. Due on due Referral Ordered: Dermatology (related to Skin lesion) ordered Referral Ordered: Referrals: Dermatology. Evaluate and treat Appointment date/timeframe: ROUTINE ordered Future Order: Lab Order CBC With Differential/Platelet ([id number]), Sent on: Sent Future Order: Lab Order Comp. Me tabolic Panel (14) ([id number]), Sent on: Sent Future Order: Lab Order Lipid Pa andres ([id number]), Sent on: Sent Future Order: Lab Order TSH And Free T4 ([id number]), Sent on: Sent Future Order: Lab Order Vitamin B12 and Folates ([id number]), Sent on: Sent Future Order: Lab Order Vitamin D 25-Hydroxy ([id number]), Sent on: Sent History Of Present Illness Encounter Date Complaint History Of Prese nt Illness Cough Onset: 1 month a go. The patient describes the cough as productive (of green sputum). Associated symptoms include fatigue. Pertinent negatives include chills, fever, nasal congestion, night sweats and sore throat. The patient does not have a history of allergies or asthma. Cough (comments) sick over a mon tried flonase, allergy med, otc cough meds. daughter also sick cough. -- whooping cough vaccine - 6 weeks ago. Follow Up of Hypertension The HT N started in 2014. The symptoms began suddenly. It is currently getting worse. Risk factors include inactive lifestyle and obesity. The hypertension is exacerbated by anxiety and stress. Pertinent negatives include chest pain, confusion, diaphoresis, fatigue, headache, irregular heartbeat/palpitations, nausea and vomiting. Additional information: per guidlines pt needs a referral for an eye dr today also. hypertension The HTN started in 2014. It is currently a new diagnosis. Risk factors include inactive lifestyle. There are no associated symptoms. Pertinent negatives include chest pain, claudication, confusion, diaphoresis, dyspnea, epistaxis, fatigue, headache, hematuria, irregular heartbeat/palpitations, nausea, tinnitus, transient weakness, tremor, visual disturbances and vomiting. Additional information: pt with no hx of htn. Lump under armpit The symptoms b aleah 1 day ago. The symptoms are reported as being moderate. The symptoms occur daily. Pt states she found a lump under her left armpit x yesterday.WbrightMA Functional Status Date Functional Assessmen t No Information Instructions Date Instruction Additional Infor mation incrase lisinopril 4 0 mg a day and refill hctz Related to Benign hypertension zithomax z pakphener [place] with codient 1- tsp q 4-6 8 ouncesf/u 2 weeks Related to Bronchitis recommend low sodium diet and increased physical activity. pt to keep daily bp log and rtc 1 month for review. rtc in 1 day for recheck bp. take medication as prescribed. rtc if any other concerns. Related to Hypertension recommend low sodium diet and increased physical activity. pt to keep daily bp log and rtc in 1 month for review. take medication as prescribed. rtc sooner if any other concerns. Related to HTN (hypertension) encouraged weight lo ss, increased physical activity and reduced calorie diet. Related to Obesity avoid scratching or rubb ing lesion. follow up with dermatology as discussed. Related to Skin lesion Assessments Type Assessment Date No Information Patient Care Teams Name Effective Dates (start - stop) Status Members No Information
== END 2024-01-25 14:14 | disposition home or self-care (01) ==
PROVIDERS: PCP Nurse Practitioner Family; Visit Provider Nurse Practitioner Family
DX: R00.0 Tachycardia, unspecified (principal); F41.1 Generalized anxiety disorder; E78.2 Mixed hyperlipidemia; F33.1 Major depressive disorder, recurrent, moderate; I10 Essential (primary) hypertension

== ENCOUNTER → 2024-01-25 13:01 | Outpatient (BNVA) | payer OTHER, SELFPAY | PROVIDERS: PCP Nurse Practitioner Family; Visit Provider Nurse Practitioner Family | DX: R00.0 Tachycardia, unspecified (principal); F41.1 Generalized anxiety disorder; E78.2 Mixed hyperlipidemia; I10 Essential (primary) hypertension; F33.1 Major depressive disorder, recurrent, moderate | CPT/HCPCS: 96127 ==